=== PATIENT | female | born 1990 | race African-American/Black ===

== ENCOUNTER 2023-04-11 18:11 | Emergency (ER) | payer OTHER ==
[~2023-04-11] VITALS: Ht 172.7 cm; Wt 59.1 kg
[~2023-04-11 18:11] MED LIST: NOCURR
[2023-04-11 18:27] VITALS: BP 135/72
[2023-04-11] MEDS ORDERED: AMOX1TAB16 PO (19:01)
[2023-04-11] MEDS ORDERED: ACET-66 PO (19:01)
[2023-04-11] MEDS ORDERED: IBUP-1492 PO (19:01)
== END 2023-04-11 19:16 | disposition home or self-care (01) ==
LOC: EMS 18:14
DX: L03.213 Periorbital cellulitis (principal)
CPT/HCPCS: 99283

== ENCOUNTER 2024-09-07 17:02 | Emergency (ER) | payer OTHER ==
[~2024-09-07] VITALS: Ht 162.6 cm; Wt 61.4 kg
[~2024-09-07 17:02] MED LIST changes: +ACET-66 PO; +AMOX-457 PO; +IBUP-1492 PO; -NOCURR
[2024-09-07 17:18] VITALS: BP 107/66; PULSE 92; RESP 18; TEMP 98.3; O2SAT 98
[2024-09-07 18:09] LABS: BASOPHILS % (AUTO) 0.5 % (0.0-2.0); EOSINOPHILS % (AUTO) 2.5 % (1.0-6.0); HEMOGLOBIN 11.8 g/dL (12.0-16.0); LYMPHOCYTES % (AUTO) 38.9 % (22.0-44.0); MEAN CORPUSCULAR HEMOGLOBIN 25.8 pg (26.0-34.0); MEAN CORPUSCULAR HGB CONC 31.7 G/dL (31.0-37.0); MEAN CORPUSCULAR VOLUME 81 fL (80-100); MONOCYTES # (AUTO) 0.4 K/uL (0.1-1.0); MONOCYTES % (AUTO) 7.1 % (2.0-9.0); NEUTROPHILS # (AUTO) 2.6 K/uL (1.8-7.7); PLATELET COUNT (AUTO) 251 K/uL (150-450); RED BLOOD CELL COUNT(AUTO) 4.55 MIL/uL (4.00-5.20); RED CELL DISTRIBUTION WIDTH 16.5 % (11.5-14.5); WHITE BLOOD COUNT (AUTO) 5.1 K/uL (4.5-11.0)
[2024-09-07 18:15] LABS: ANION GAP 9 mmol/L (8-16); CARBON DIOXIDE 29 mmol/L (22-29); CHLORIDE 101 mmol/L (98-107); CREATININE 0.88 mg/dL (0.60-1.30); GLOMERULAR FILTR. RATE CALC > 60 mL/min (>60); GLUCOSE,RANDOM 71 mg/dL (70-110); SODIUM SERUM 139 mmol/L (136-145); UREA NITROGEN, BLOOD 14 mg/dL (7-18)
== END 2024-09-07 22:44 | disposition left against medical advice (07) ==
LOC: EMS 17:02
DX: R11.2 Nausea with vomiting, unspecified (principal); R42 Dizziness and giddiness; Z53.21 Procedure and treatment not carried out due to patient leaving prior to being seen by health care provider
CPT/HCPCS: 80048; 84703; 85025